=== PATIENT | female | born 1945 | race Caucasian/White ===

== ENCOUNTER 2017-09-13 09:58 | Day surgery (SDC) | payer MEDICARE ==
[~2017-09-13] VITALS: Ht 160 cm; Wt 111.0 kg
[~2017-09-13 09:58] MED LIST: Amiodarone HCl200 MG PO; Aspirin EC81 MG PO; B-COMPLEX WITH1 EAC2; DIGO.125 PO; ELIQUIS5 MG PO; LIVALO2 MG PO; LOSARTAN POTAS100 MG PO; METO100ER PO; METO50 PO; Magnesium250 MG; Mirapex0.25 MG PO; POTASSIUM99 MG PO; ROSU10TA PO; TORSE20 PO; VENLAFAXINE HCL75 MG PO; Vitamin D400 UNI1
== END 2017-09-13 22:50 | disposition home or self-care (01) ==
LOC: MHTC 09:58
PROC: 5A2204Z Restoration of Cardiac Rhythm, Single (ICD-10-PCS; principal; 2017-09-13)
DX: I48.1 Persistent atrial fibrillation (principal); I25.10 Atherosclerotic heart disease of native coronary artery without angina pectoris; E78.5 Hyperlipidemia, unspecified; I10 Essential (primary) hypertension
CPT/HCPCS: 92960; 93005; 93010; J0282; J3480; J7030